=== PATIENT | female | born 1960 | race Caucasian/White ===

== ENCOUNTER 2025-02-03 12:44 | Emergency (ER) | payer MEDICARE, MEDICAID ==
[~2025-02-03] VITALS: Ht 162.6 cm; Wt 69.1 kg
[2025-02-03 13:08] VITALS: BP 136/78; PULSE 80; RESP 16; TEMP 98; O2SAT 97
== END 2025-02-03 13:46 | disposition home or self-care (01) ==
LOC: ER 12:44
DX: Z02.2 Encounter for examination for admission to residential institution (principal)
CPT/HCPCS: 99284

== ENCOUNTER 2025-05-13 14:49 | Emergency (ER) | payer MEDICARE, MEDICAID ==
[~2025-05-13] VITALS: Ht 162.6 cm; Wt 82.7 kg
[2025-05-13 14:58] VITALS: BP 128/70; PULSE 65; TEMP 97.9; O2SAT 96
[2025-05-13 15:16] LABS: LEUKOCYTE ESTERASE ,URINE NEGATIVE (Neg); NITRITES, URINE NEGATIVE (Neg); OCCULT BLOOD,URINE TRACE-INTACT (Neg)
[2025-05-13 15:17] LABS: UA COLLECTION TYPE CLN CATCH MIDSTREAM
--- NOTE | 2025-05-13 15:38 | Physician Documentation ---
History of Present Illness ~ General Chief Complaint: Multiple Medical Complaints Stated Complaint: FALL Time Seen by MD: 15:38 Primary Medical Doctor: KANE WEAVER History of Present Illness Initial Comments 65-year-old female presents to the emergency department reporting that she was shopping at [employer] when she was hit by a cart, which caused her to fall over backwards. Since the fall, she has had pain to her sacrum, right lower extremity, right ankle, right shoulder. She denies hitting of her head or loss of consciousness. The patient did also make mention in triage of a protrusion from her vagina, but when questioned about this she had no desire for exam or further investigation of this issue. Medication Reconciliation Allergies: Coded Allergies: No Known Allergies (Unverified , 02/03/25) Scheduled Naproxen (Naproxen), 1 TAB PO Q12H Scheduled PRN Hydrocodone Bit/Acetaminophen 5/325 MG ([place] 5/325 MG), 1 TAB PO TID PRN for pain ONDANSETRON ODT 4mg tablet (Ondansetron Odt), 1 TAB PO Q6H PRN PRN for nausea/vomiting Review of Systems ROS As stated above in the HPI, otherwise all systems are reviewed and negative. Physical Exam Physical Exam Vital Signs: Temperature: 97.9, Source: Temporal, Heart Rate: 65, Respiratory Rate: 18, BP: 128/70, Pulse Oximetry: 96, Weight: 82.730 Oxygen Flow Rate: 0 Physical Exam General: Alert, no apparent distress. Neck: Full range of motion. Respiratory: Lungs clear, no respiratory distress. Chest: No accessory muscle use. Cardiovascular: Regular rate and rhythm, no murmurs. Gastrointestinal: Soft, nontender, nondistended. Bowels sounds present. Extremities: TTP without crepitus over sacrum. Reports painful ROM right shoulder, right ankle, RLE. 1+ edema noted RLE. Neurologic: Oriented x4. Psychiatric: Normal mood and affect. Skin: Normal color, warm and dry. No edema, no ecchymosis. Progress Results/Orders Results/Orders Orders - SWATHI NUÑEZ NP Sacrum & Coccyx (05/13/25 16:04) Ankle, Complete(3vw Min) (05/13/25 16:04) Shoulder, Complete (Min 2 Vws) (05/13/25 16:04) Tib/Fib (05/13/25 16:04) Ct Lumbar Spine (05/13/25 17:06) Completed Orders - SWATHI NUÑEZ ODD SHOE EXAMINER Sacrum & Coccyx (05/13/25 16:04) Ankle, Complete(3vw Min) (05/13/25 16:04) Shoulder, Complete (Min 2 Vws) (05/13/25 16:04) Tib/Fib (05/13/25 16:04) Hydrocodone/Apap 5/325mg Tab ([place] 5/32 (05/13/25 16:30) Ct Lumbar Spine (05/13/25 17:06) Ketorolac Trometh 15mg/Ml Vial (Toradol (05/13/25 17:00) Medications Received in ER Medications (Trade) Dose Ordered Sig/Rachelle Route PRN Reason Start Time Stop Time Status Last Admin Dose Admin ([place] 5/325mg tablet) 1 tab ONCE ONCE PO 05/13/25 16:30 05/13/25 16:31 DC 05/13/25 17:14 1 TAB (Toradol injection) 30 mg ONCE ONCE IM 05/13/25 17:00 05/13/25 17:02 DC 05/13/25 17:14 30 MG Vital Signs 05/13/25 05/13/25 05/13/25 14:58 17:14 17:14 Temp 97.9 Pulse 65 Resp 18 16 16 B/P (MAP) 128/70 Pulse Ox 96 O2 Flow Rate 0 Laboratory Tests Test 05/13/25 15:09 Urine Specimen Description Cln catch midstream Urine Color Yellow Urine Clarity Slightly cloudy Urine pH 6.0 Urine Specific [place] 1.025 Urine Protein Negative Urine Glucose (UA) Negative Urine Ketones Negative Urine Occult Blood Trace-intact Urine Nitrite Negative Urine Bilirubin Negative Urine Urobilinogen 0.2 Urine Leukocyte Esterase Negative Urine RBC 3-10 Urine WBC 0-4 Urine Squamous Epithelial Cells Many Urine Transitional Epithelial Cells Few Urine Renal Cells Few Urine Bacteria 2+ Urine Culture Indicated Not ind Volume Urine Centrifuged 10 ml Urine Comment EKG/XRAY/CT/US/VASC/MRI Bone/Soft Tissue X-Ray (Spine) : Additional Comment [facility] [address], [place], [place] - [address] DIAGNOSTIC RADIOLOGY Patient: LAURA KERN Medical Record: [id number] : 1960, Age: 65 Sex: Female Location: ER Patient Status: [facility] ER Service Date/Time: 05/13/251603 Ordering Physician: SWATHI NUÑEZ NP Exam: SHOULDER, COMPLETE (MIN 2 VWS) EXAM: DI SHOULDER, COMPLETE (MIN 2 VWS) HISTORY: TRAUMA, FALL, PAIN COMPARISON: None TECHNIQUE: 2 views of the right shoulder were performed. FINDINGS: No acute fracture or dislocation are identified about the right shoulder. There is acromioclavicular hypertrophy with loss of subacromial space. No significant glenohumeral degenerative changes. IMPRESSION: 1. No acute fracture of the right shoulder. 2. Acromioclavicular hypertrophy with loss of subacromial space suggestive of significant rotator cuff tendinopathy. This may be better characterized with noncontrast MRI of the right shoulder on an outpatient basis. Electronically Signed by:HERSON LOVING MD Date & Time: 05/13/25 1643 Dictated by: HERSON LOVING MD Dictation date and time: 05/13/25 1620 Primary Care Provider: NO PRIMARY CARE PROVIDER cc: SWATHI NUÑEZ NP ~ Bone/Soft Tissue X-Ray (Ext.) : Additional Comment [address], [place], [facility] [address] DIAGNOSTIC RADIOLOGY Patient: LAURA KERN Medical Record: [id number] [facility] : 1960, Age: 65 Sex: Female Location: ER Patient Status: [facility] ER Service Date/Time: 05/13/251603 Ordering Physician: SWATHI NUÑEZ NP Exam: TIB/FIB 2 VWS CLINICAL INDICATION: TRAUMA, FALL, PAIN TECHNIQUE: AP and lateral views of the right lower leg were performed. DI TIB/FIB 2 VWS Comparison: None FINDINGS/IMPRESSION: 1. No acute fracture of the right tibia or fibula. 2. Probable old fractures of the medial and lateral malleoli versus cortical irregularity due to old ligamentous injury. 3. Postoperative changes of right total knee arthroplasty without evidence of periprosthetic fracture, loosening, or other complication. 4. Moderate to severe osteoarthritis of the right ankle. Plantar calcaneal bone spur, os trigonum, and Achilles insertion enthesophyte incidentally noted. Electronically Signed by:HERSON LOVING MD Date & Time: 05/13/25 1646 Dictated by: HERSON LOVING MD Dictation date and time: 05/13/25 1620 Primary Care Provider: NO PRIMARY CARE PROVIDER cc: SWATHI NUÑEZ NP ~ [address] [address] DIAGNOSTIC RADIOLOGY Patient: LAURA KERN Medical Record: [id number] [facility] : 1960, Age: 65 Sex: Female Location: ER Patient Status: REG ER Service Date/Time: 05/13/251603 Ordering Physician: SWATHI NUÑEZ NP Exam: ANKLE, COMPLETE(3VW MIN) EXAM: DI ANKLE, COMPLETE(3VW MIN) HISTORY: TRAUMA, FALL, PAIN COMPARISON: None TECHNIQUE: 3 views of the right ankle were performed. FINDINGS/IMPRESSION: 1. No acute fracture of the right ankle. 2. There may be old fractures of the medial and lateral malleoli versus artifactual appearance due to dystrophic calcifications related to old ligamentous injury. 3. Moderate to severe osteoarthritis of the right ankle. 4. Incidental findings include plantar calcaneal bone spur, Achilles insertion enthesophyte, os trigonum, and dorsally projecting bone spur from the talar neck. Electronically Signed by:HERSON LOVING MD Date & Time: 05/13/25 1648 Dictated by: HERSON LOVING MD Dictation date and time: 05/13/25 1620 Primary Care Provider: NO PRIMARY CARE PROVIDER cc: SWATHI NUÑEZ ODD SHOE EXAMINER ~ [address] [address] DIAGNOSTIC RADIOLOGY Patient: LAURA KERN Medical Record: [id number] [facility] : 1960, Age: 65 Sex: Female Location: ER Patient Status: [facility] ER Service Date/Time: 05/13/251603 Ordering Physician: SWATHI NUÑEZ NP Exam: SACRUM & COCCYX EXAM: DI SACRUM COCCYX HISTORY: TRAUMA, FALL, PAIN COMPARISON: None TECHNIQUE: Three views of the sacrum and coccyx were performed. FINDINGS/IMPRESSION: 1. Question of distal sacral fracture versus artifactual appearance due to developmental irregularity. If the patient is tender to palpation over the distal sacrum, consider follow-up noncontrast CT scan of the pelvis for better characterization. 2. Possible chronic superior endplate compression fracture of L4 versus artifactual appearance as this is at the periphery of the lateral film. Electronically Signed by:HESRON LOVING MD Date & Time: 05/13/25 1649 Dictated by: HERSON LOVING MD Dictation date and time: 05/13/25 1620 Primary Care Provider: NO PRIMARY CARE PROVIDER cc: SWATHI NUÑEZ ODD SHOE EXAMINER ~ CT : Impression [place] [address] CAT SCAN Patient: LAURA KERN Medical Record: [id number] [facility] : 1960, Age: 65 Sex: Female Location: ER Patient Status: [facility] ER Service Date/Time: 05/13/251705 Ordering Physician: SWATHI NUÑEZ NP Exam: CT LUMBAR SPINE EXAM: CT CT LUMBAR SPINE INDICATION: pain, trauma, be sure to include sacrum pls EXAM DATE: 05/13/2025 05:02 PM COMPARISON: None TECHNIQUE: Multiple axial CT images of the lumbar spine were obtained using bone algorithm. Axial and coronal reformatting was done. Bone and soft tissue windows were reviewed. Radiation Dose Information: CT Dose: CTDI volume is 34.79 mGy. Dose-length product is 1319.63 mGy*cm Findings: There are 5 nonrib-bearing lumbar vertebrae. There is no evidence of an acute fracture or spondylolisthesis. Mild compression fracture of L4, likely chronic. Mild spondylosis. The sacrum is within normal limits. No spinal canal stenosis. The alignment is within normal limits. The paraspinal soft tissues appear within normal limits. Diverticulosis. Mild aortoiliac atherosclerosis. Small to moderate hiatal hernia. Impression: 1. No evidence of an acute fracture. 2. Mild degenerative changes of the lumbar spine. 3. Chronic compression fracture of L4. Electronically Signed by:SABINE LOPEZ DO Date & Time: 05/13/25 175 Dictated by: SABINE LOPEZ DO Dictation date and time: 05/13/25 1706 Primary Care Provider: NO PRIMARY CARE PROVIDER cc: SWATHI NUÑEZ ODD SHOE EXAMINER ~ Medical Decision Making Differential Diagnosis 65-year-old female presented after a fall that resulted and pain to the sacrum, right shoulder, right lower extremity, right ankle. Her x-ray showed evidence of significant arthritic and degenerative changes but no acute fractures. Sacrum x-ray initially showed concerns for fracture, so CT was pursued per the recommendation of the radiologist. This did not show any fracture. Again, the patient has significant arthritis every whether it was x-rayed, and some evidence of old healed fractures. No acute findings. She will be treated with naproxen, hydrocodone for pain. She will be given ondansetron as needed for nausea. She is encouraged to ice the sore areas and follow up with the primary care provider or return if worse. Departure Time of Disposition: 18:08 Impression: Primary Impression: Fall Qualified Codes: W19.XXXA - Unspecified fall, initial encounter Additional Impressions: Sacral contusion Qualified Codes: S30.0XXA - Contusion of lower back and pelvis, initial encounter Right ankle injury Qualified Codes: S99.911A - Unspecified injury of right ankle, initial enc ounter Right shoulder injury Qualified Codes: S49.91XA - Unspecified injury of right shoulder and upper arm, initial encounter Additional Instructions: You bruised your sacrum/coccyx. Your right shoulder is not broken, but it does appear that you have issues with your rotator cuff on this side. You have significant arthritis, including right ankle. See your primary care provider soon for referral to PT for both shoulders. Use naproxen as needed for pain. Ice to sore areas. Followup with primary care. Return if worse. Referrals: NO PRIMARY CARE PROVIDER (PCP) Prescriptions Hydrocodone Bit/Acetaminophen 5/325 MG ([place] 5/325 MG) 5 Mg/325 Mg Tablet 1 TAB PO TID PRN for pain, #15 TAB Prov: SWATHI NUÑEZ NP 05/13/25 ONDANSETRON ODT 4mg tablet (ONDANSETRON ODT) 4 Mg Tab.rapdis 1 TAB PO Q6H PRN PRN for nausea/vomiting for 4 Days, #16 TAB 0 Refills Prov: SWATHI NUÑEZ NP 05/13/25 Naproxen (Naproxen) 500 Mg Tablet 1 TAB PO Q12H, #20 TAB Prov: SWATHI NUÑEZ NP 05/13/25 Education Educated: Patient Educated regarding: diagnosis, treatment, prognosis, need for follow up Signature Scribe Signature: no scribe Attestation: The note accurately reflects work and decisions made by me.Swathi Marte NP 05/13/25 16:08 SWATHI NUÑEZ NP May 13, 2025 15:38
[2025-05-13 15:48] LABS: RENAL CELLS, URINE FEW /HPF; SQUAMOUS EPITHELIAL CELL,UR MANY /LPF (FEW)
--- NOTE | 2025-05-13 16:46 | RADIOLOGY REPORT ---
EXAM: DI SHOULDER, COMPLETE (MIN 2 VWS) HISTORY: TRAUMA, FALL, PAIN COMPARISON: None TECHNIQUE: 2 views of the right shoulder were performed. FINDINGS: No acute fracture or dislocation are identified about the right shoulder. There is acromioclavicular hypertrophy with loss of subacromial space. No significant glenohumeral degenerative changes. IMPRESSION: 1. No acute fracture of the right shoulder. 2. Acromioclavicular hypertrophy with loss of subacromial space suggestive of significant rotator cuf f tendinopathy. This may be better characterized with noncontrast MRI of the right shoulder on an ou tpatient basis.
--- NOTE | 2025-05-13 16:49 | RADIOLOGY REPORT ---
CLINICAL INDICATION: TRAUMA, FALL, PAIN TECHNIQUE: AP and lateral views of the right lower leg were performed. DI TIB/FIB 2 VWS Comparison: None FINDINGS/IMPRESSION: 1. No acute fracture of the right tibia or fibula. 2. Probable old fractures of the medial and lateral malleoli versus cortical irregularity due to old ligamentous injury. 3. Postoperative changes of right total knee arthroplasty without evidence of periprosthetic fracture , loosening, or other complication. 4. Moderate to severe osteoarthritis of the right ankle. Plantar calcaneal bone spur, os trigonum, an d Achilles insertion enthesophyte incidentally noted.
--- NOTE | 2025-05-13 16:50 | RADIOLOGY REPORT ---
EXAM: DI ANKLE, COMPLETE(3VW MIN) HISTORY: TRAUMA, FALL, PAIN COMPARISON: None TECHNIQUE: 3 views of the right ankle were performed. FINDINGS/IMPRESSION: 1. No acute fracture of the right ankle. 2. There may be old fractures of the medial and lateral malleoli versus artifactual appearance due to dystrophic calcifications related to old ligamentous injury. 3. Moderate to severe osteoarthritis of the right ankle. 4. Incidental findings include plantar calcaneal bone spur, Achilles insertion enthesophyte, os juan carlos num, and dorsally projecting bone spur from the talar neck.
--- NOTE | 2025-05-13 16:52 | RADIOLOGY REPORT ---
EXAM: DI SACRUM COCCYX HISTORY: TRAUMA, FALL, PAIN COMPARISON: None TECHNIQUE: Three views of the sacrum and coccyx were performed. FINDINGS/IMPRESSION: 1. Question of distal sacral fracture versus artifactual appearance due to developmental irregularity . If the patient is tender to palpation over the distal sacrum, consider follow-up noncontrast CT sca n of the pelvis for better characterization. 2. Possible chronic superior endplate compression fracture of L4 versus artifactual appearance as thi s is at the periphery of the lateral film.
[2025-05-13 17:14] VITALS: RESP 16
[2025-05-13] MEDS: HYDROcodone/acetaminophen 5mg/325mg tablet PO ONE (17:14)
[2025-05-13] MEDS: ketorolac trometh 15mg/ml vial 15 MG/ML ML IM ONE (17:14)
--- NOTE | 2025-05-13 18:02 | RADIOLOGY REPORT ---
EXAM: CT CT LUMBAR SPINE INDICATION: pain, trauma, be sure to include sacrum pls EXAM DATE: 05/13/2025 05:02 PM COMPARISON: None TECHNIQUE: Multiple axial CT images of the lumbar spine were obtained using bone algorithm. Axial and coronal reformatting was done. Bone and soft tissue windows were reviewed. Radiation Dose Information: CT Dose: CTDI volume is 34.79 mGy. Dose-length product is 1319.63 mGy*cm Findings: There are 5 nonrib-bearing lumbar vertebrae. There is no evidence of an acute fracture or spondylolisthesis. Mild compression fracture of L4, like ly chronic. Mild spondylosis. The sacrum is within normal limits. No spinal canal stenosis. The alignment is within normal limits. The paraspinal soft tissues appear within normal limits. Diver ticulosis. Mild aortoiliac atherosclerosis. Small to moderate hiatal hernia. Impression: 1. No evidence of an acute fracture. 2. Mild degenerative changes of the lumbar spine. 3. Chronic compression fracture of L4.
[2025-05-13] MEDS ORDERED: HYDR-3965 PO ×2 (18:04→18:07)
[2025-05-13] MEDS ORDERED: ONDA-243 PO (18:04)
[2025-05-13] MEDS ORDERED: NAPR-56 PO (18:05)
== END 2025-05-13 18:25 | disposition home or self-care (01) ==
LOC: ER 14:50
DX: S30.0XXA Contusion of lower back and pelvis, initial encounter (principal); S99.811A Other specified injuries of right ankle, initial encounter; S49.81XA Other specified injuries of right shoulder and upper arm, initial encounter; Z79.899 Other long term (current) drug therapy; W18.30XA Fall on same level, unspecified, initial encounter; Y93.89 Activity, other specified; Y92.89 Other specified places as the place of occurrence of the external cause; Y99.8 Other external cause status
CPT/HCPCS: 72131; 72220; 73030; 73590; 73610; 81001; 96372; 99285; J1885

== ENCOUNTER 2025-05-20 13:14 | Emergency (ER) | payer MEDICARE, MEDICAID ==
[~2025-05-20] VITALS: Ht 162.6 cm; Wt 71.7 kg
[~2025-05-20 13:14] MED LIST: HYDR-3965 PO; NAPR-56 PO; ONDA-243 PO
[2025-05-20 13:16] VITALS: BP 125/74; PULSE 74; RESP 15; TEMP 97.1; O2SAT 97
== END 2025-05-20 20:10 | disposition left against medical advice (07) ==
LOC: ER 13:15
DX: R39.89 Other symptoms and signs involving the genitourinary system (principal); Z53.21 Procedure and treatment not carried out due to patient leaving prior to being seen by health care provider

== ENCOUNTER 2025-05-21 11:11 | Emergency (ER) | payer MEDICARE, MEDICAID ==
[~2025-05-21] VITALS: Ht 162.6 cm; Wt 73.5 kg
[2025-05-21 11:18] VITALS: BP 153/97; PULSE 68; RESP 15; O2SAT 96
[2025-05-21 12:05] LABS: MEAN PLATELET VOLUME 9.4 FL (7.4-10.4); RED CELL DISTRIBUTION WIDTH 13.9 % (11.5-14.5)
[2025-05-21 12:21] LABS: CREATININE 0.90 MG/DL (0.40-0.90); TOTAL CARBON DIOXIDE 27.2 MMOL/L (24-32); eCRCL 53 ML/MIN; eGFR 63 ML/MIN
--- NOTE | 2025-05-21 15:33 | Physician Documentation ---
History of Present Illness ~ Chief Complaint: Vaginal Bleeding Stated Complaint: "I AM HAVING BLADDER PROBLEMS" Time Seen by MD: 14:29 OK to notify your PCP?: Yes Primary Medical Doctor: KANE WEAVER Source: patient Mode of Arrival: POV Exam Limitations: no limitations HPI 65-year-old female with chief complaint bulge in her vaginal area and pressure in her lower pelvis. She states these symptoms have been ongoing since she had a fall in [employer] in December. She reports that an employee and [employer] ended up running into her in his cart and knocking her over and she is wondering if this could have caused vaginal prolapse. She intermittently has some bleeding at her vaginal opening. She did have a hysterectomy in 2000 but still has her ovaries. She denies any rectal bleeding. She does report increased urinary frequency and urgency, no pain with urination. She would like to be evaluated for urinary tract infection. She states she was last evaluated for UTI in December at [facility] and was told it was negative. 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 She also is no longer walking like she was wh en she was homeless so she is now living in an apartment. She is wondering if the weight gain could be causing the bulge in her vagina. Medication Reconciliation Allergies: Coded Allergies: No Known Allergies (Unverified , 02/03/25) Scheduled Naproxen (Naproxen), 1 TAB PO Q12H Scheduled PRN Hydrocodone Bit/Acetaminophen 5/325 MG ([place] 5/325 MG), 1 TAB PO TID PRN for pain ONDANSETRON ODT 4mg tablet (Ondansetron Odt), 1 TAB PO Q6H PRN PRN for nausea/vomiting Past Medical History Past Medical History: No Pertinent History Past Surgical History: noncontributory Review of Systems All Other Systems at this time: Reviewed and Negative Physical Exam Vital Signs: Temperature: 96.8, Source: Temporal, Heart Rate: 68, Respiratory Rate: 15, BP: 153/97, Pulse Oximetry: 96, Weight: 73.550 Physical Exam GENERAL: Alert, no acute distress. HEENT: NCAT, EOMI, PERRL, normal oropharynx, moist oral mucosa. NECK: Supple, trachea midline. CARDIAC: Regular rate and rhythm, no murmurs, rubs, or gallops. PV: Equal distal pulses. No lower extremity edema, cap refill less than 2 seconds. RESPIRATORY: Equal breath sounds, clear to auscultation bilaterally, no respiratory distress. GASTROINTESTINAL: Non distended, soft, nontender, No guarding or rebound. : BULGE VISIBLE AT VAGINAL INTROTRIUS, NO BLEEDING, NO ABNORMAL LESIONS. MUSCULOSKELETAL: Normal range of motion, nontender, no swelling. Normal gait. NEUROLOGICAL: Awake, alert, and oriented x 3. SKIN: Warm/dry, no pallor, no rash. PSYCH: Alert and appropriate. Affect congruent with mood. Speech is clear. Good eye contact. Progress Progress Note PATIENT WANTED TO LEAVE AND WAS UNABLE TO GIVE US ADEQUATE URINE SAMPLE WHICH WAS REASONABLE SYMPTOMS WERE ALL CONSISTENT WITH HER VAGINAL PROLAPSE SHE DID NOT HAVE PAIN WITH URINATION Results/Orders Results/Orders Orders - SUJEY VERDE General Nursing Order (05/21/25 14:56) Pre Op Uacii (05/21/25 UNK) Vital Signs 05/21/25 05/21/25 11:18 15:23 Temp 96.8 Pulse 68 Resp 15 B/P (MAP) 153/97 Pulse Ox 96 Laboratory Tests Test 05/21/25 11:40 05/21/25 15:10 White Blood Count 4.7 Red Blood Count 4.05 L Hemoglobin 12.3 Hematocrit 37.0 Mean Corpuscular Volume 91.3 Mean Corpuscular Hemoglobin 30.3 Mean Corpuscular Hemoglobin Concent 33.2 Red Cell Distribution Width 13.9 Platelet Count 148 Mean Platelet Volume 9.4 Neutrophils (%) (Auto) 57.5 Lymphocytes (%) (Auto) 29.7 Monocytes (%) (Auto) 8.8 Eosinophils (%) (Auto) 2.9 Basophils (%) (Auto) 1.1 H Neutrophils # (Auto) 2.7 Lymphocytes # (Auto) 1.4 Monocytes # (Auto) 0.4 Eosinophils # (Auto) 0.1 Basophils # (Auto) 0.1 CBC Comment Sodium Level 139 Potassium Level 4.6 Chloride Level 106 Carbon Dioxide Level 27.2 Anion Gap 6 L Blood Urea Nitrogen 24 H Creatinine 0.90 Estimated GFR/1.73 m2 63 BUN/Creatinine Ratio 26.7 H Glucose Level 66 L Calcium Level 8.4 L Total Bilirubin 0.3 Aspartate Amino Transf (AST/SGOT) 12 Alanine Aminotransferase (ALT/SGPT) 13 Alkaline Phosphatase 89 Total Protein 6.8 Albumin 3.5 Globulin 3.3 Albumin/Globulin Ratio 1.1 Lipase 25 Chemistry Comments Urine Comment Medical Decision Making Genital Diff Dx:Considerations: Include: -Complete, -Incompl ete, -Inevitable, Ablortion-Missed, -Threatened, Abruptio placentae, Bartholin abscess, Bartholin cyst, Blood loss anemia, Constipation, Cervicitis, Dsymenorrhea, Ectopic , Foreign body, Hormonal, Hidradenitis suppurativa, Intrauterine , Menorrhagia, Menometrorrhagia, Menstrual bleeding, Myomatous uterus, Perianal abscess, Physiologic discharge, Pinworms, PID, Placenta previa, , Precipitous Hct, Trauma, UTI, Vaginitis(osis)-Atrophic, Vaginitis, Vaginitis(osis)-Bacterial, Vaginitis(osis)- Candidal, Vaginitis(osis)-Contact, Vaginitis(osis)-Herpes, Vaginitis(osis)- Trich. Departure Time of Disposition: 15:32 Disposition: 01 HOME / SELF CARE / HOMELESS Impression: Primary Impression: Vaginal prolapse Condition: Stable Discharge Instructions: Pelvic Organ Prolapse Additional Instructions: F/U WITH PCP FOR REFERRAL TO OBGYN FOR FURTHER EVALUATION, POSSIBLY EVAL FOR PESSARY VS. SURGICAL OPTIONS URINALYSIS IN ER TODAY WAS NEGATIVE Referrals: NO PRIMARY CARE PROVIDER (PCP) Education Educated: Patient Educated regarding: diagnosis, treatment, need for follow up Signature Scribe Signature: X Attestation: SUJEY BLAIR May 21, 2025 15:33
[2025-05-21 16:19] VITALS: TEMP 96.8
== END 2025-05-21 16:20 | disposition home or self-care (01) ==
LOC: ER 11:12
DX: N99.3 Prolapse of vaginal vault after hysterectomy (principal)
CPT/HCPCS: 36415; 80053; 83690; 85025; 99284